=== PATIENT | male | born 1985 | race Caucasian/White ===

== ENCOUNTER 2016-09-24 01:30 | Emergency (ER) | payer MEDICAID ==
[~2016-09-24] VITALS: Ht 187.9 cm; Wt 108.9 kg
[~2016-09-24 01:30] MED LIST: AMOXICILLIN500 MG PO; DAYPRO600 M1 PO; DOXYCYCLINE MO100 MG PO; MOTRIN800 MG PO; PEN-VEE K500 MG PO; PHENERGAN W/ DE30 ML PO; PHENERGAN W/DM120 ML PO; PREDNICOT10 MG PO; PROAIR HFA0.09 MG/AC INH; ROBAXIN750 MG PO; TRAMADOL HCL50 MG PO; ULTRAM50 MG PO; VICODIN ES 7501 TAB PO
[2016-09-24 01:35] VITALS: BP 167/99
[2016-09-24] MEDS ORDERED: CEFADROXIL500 M1 PO (01:53)
== END 2016-09-24 02:18 | disposition home or self-care (01) ==
LOC: ED 01:30
DX: S61.011A Laceration without foreign body of right thumb without damage to nail, initial encounter (principal); F17.200 Nicotine dependence, unspecified, uncomplicated; W20.8XXA Other cause of strike by thrown, projected or falling object, initial encounter; Y93.89 Activity, other specified; Y92.89 Other specified places as the place of occurrence of the external cause; Y99.8 Other external cause status

== ENCOUNTER → 2019-02-03 | Outpatient (CLI) | payer OTHER ==
[~2019-02-03] MED LIST changes: +CEFADROXIL500 M1 PO
== END | disposition home or self-care (01) ==
LOC: MRI 13:01
DX: S83.512A Sprain of anterior cruciate ligament of left knee, initial encounter (principal); M17.32 Unilateral post-traumatic osteoarthritis, left knee; M25.462 Effusion, left knee; X58.XXXA Exposure to other specified factors, initial encounter; Y93.89 Activity, other specified; Y92.89 Other specified places as the place of occurrence of the external cause; Y99.8 Other external cause status

== ENCOUNTER 2023-02-08 08:28 | Emergency (ER) | payer MEDICAID ==
[~2023-02-08] VITALS: Ht 185.4 cm; Wt 113.4 kg
[2023-02-08 09:41] VITALS: BP 123/67
[2023-02-08] MEDS ORDERED: CEPHALEXIN500 M1 PO (09:58)
== END 2023-02-08 10:12 | disposition home or self-care (01) ==
LOC: ED 08:28
DX: S61.411A Laceration without foreign body of right hand, initial encounter (principal); W26.8XXA Contact with other sharp object(s), not elsewhere classified, initial encounter; Y93.89 Activity, other specified; Y92.89 Other specified places as the place of occurrence of the external cause; Y99.8 Other external cause status